=== PATIENT | female | born 1980 | race Caucasian/White ===

== ENCOUNTER 2016-08-27 11:00 | Emergency (ER) | payer OTHER ==
[~2016-08-27] VITALS: Ht 167.6 cm; Wt 86.7 kg
[~2016-08-27 11:00] MED LIST: MULT-506 PO
[2016-08-27 11:14] VITALS: TEMP 37; Ht 167.6 cm; Wt 86.7 kg
[2016-08-27] MEDS ORDERED: SODIUM CHLORIDE 0.9% 1000ML 1,000 ML IV STA (11:31)
[2016-08-27 11:50] LABS: BASO % 0.2 %; BASO ABS # 0.01 K/uL (0-0.2); COMPLETE YES; EOS % 1.3 %; IG% 0.2 %; LYMPH % 35.2 %; LYMPH ABS # 1.88 K/uL (1.2-3.4); MEAN CELL VOLUME 81.8 fL (80-100); MEAN CORPUSCULAR HGB CONC 33.1 g/dl (32-36); MEAN PLATELET VOLUME 9.7 fL (7.4-10.4); MONO % 9.9 %; NEUT % 53.2 %; PLATELET COUNT 280 K/uL (130-400); WHITE BLOOD COUNT 5.34 K/uL (4.8-10.8)
[2016-08-27 12:07] LABS: BUN/CREATININE RATIO 14.3 (10-20); CALCIUM 8.8 mg/dl (8.5-10.1); CREATININE 0.68 mg/dl (0.60-1.20); POTASSIUM 3.7 mmol/L (3.5-5.1)
[2016-08-27 12:10] LABS: ALB/GLOB RATIO 0.8 (0.9-2)
--- NOTE | 2016-08-27 12:13 | DIAGNOSTIC IMAGING REPORT ---
CT SCAN OF THE ABDOMEN AND PELVIS WITHOUT CONTRAST CLINICAL HISTORY: RLQ abdominal pain, radiates to flank. Dark urine. COMPARISON STUDY: No previous studies for comparison. TECHNIQUE: CT scan of the abdomen and pelvis was performed from the lung bases to the proximal femurs. Images are reviewed in the axial, sagittal, and coronal planes. IV contrast was not administered for this examination. CT DOSE: 1004.37 mGy.cm FINDINGS: Lower chest: There are minor basilar atelectatic changes. There is a 2 mm right lower lobe pulmonary nodule as visualized in image #[id number]. This is of doubtful clinical significance. The unenhanced liver is normal in size, contour, and attenuation. There is no intrahepatic biliary ductal dilatation. Liver: Gallbladder: Unremarkable. Spleen: Normal in size and attenuation. Pancreas: Unremarkable. Adrenal glands: Unremarkable. Kidneys: No renal, ureteral, or bladder calculi are visualized. Bowel: There are no transition zones indicate bowel obstruction. There is no acute diverticulitis. The appendix appears normal. Peritoneum: There is no intraperitoneal free air or abdominal ascites. Vasculature: The abdominal aorta is normal in course and caliber. Adenopathy: None. Pelvic viscera: The bladder, and pelvic viscera are unremarkable. Skeletal structures: No destructive osseous lesions are seen. IMPRESSION: 1. No acute intra-abdominal or pelvic findings 2. No evidence of bowel obstruction. No evidence of free air 3. No renal, ureteral, or bladder calculi identified 4. Normal appendix. No evidence of acute diverticulitis. Electronically signed by: Blaine Jimenes M.D. 08/27/2016 12:12 PM Dictated Date/Time: 08/27/2016 12:07 PM
[2016-08-27 13:30] LABS: URINE APPEARANCE CLEAR (CLEAR); URINE BILIRUBIN NEG (NEG); URINE COLOR YELLOW; URINE NITRITE NEG (NEG); URINE SPECIFIC GRAVITY 1.009 (1.000-1.030); UROBILINOGEN NEG (NEG); ZZUR CULT IF INDIC CLEAN CATCH NO
[2016-08-27 13:31] LABS: MANUAL MICROSCOPIC REQUIRED? NO; REVIEW REQ? NO
--- NOTE | 2016-08-27 15:16 | DIAGNOSTIC IMAGING REPORT ---
TRANSVAG-FEMALE PELVIS CLINICAL HISTORY: Right lower quadrant abdominal pain. COMPARISON STUDY: Pelvic ultrasound March 20, [address] of the abdomen and pelvis August 27, 2016. FINDINGS: The uterus measures 9.8 x 4.7 x 6.3 cm. The endometrium measures 1.1 cm in thickness. The right ovary measures 3.3 x 1.9 x 2.5 cm and the left ovary measures 3.2 x 2.4 x 3.1 cm and contains a dominant follicle. Color flow is identified within each ovary. There was no free fluid. IMPRESSION: Unremarkable pelvic ultrasound. Electronically signed by: Richard García M.D. 08/27/2016 3:15 PM Dictated Date/Time: 08/27/2016 3:14 PM
[2016-08-27 15:36] VITALS: BP 121/78; PULSE 75; O2SAT 100
--- NOTE | 2016-08-27 15:46 | EMERGENCY ROOM VISIT NOTE ---
History First contact with patient: 11:19 Chief Complaint: ABDOMINAL PAIN Stated Complaint: STOMACH PAIN Nursing Triage Summary: pt reports right abd pain described as sharp. started 2 days ago denies any n/v/d/ History of Present Illness The patient is a 36 year old female who presents to the Emergency Room via private vehicle with complaints of "stomach pain". The patient states that 3 days ago she began with sharp pain in the right lower quadrant. She states that she is taking pain medication and the pain is felt better. She states that the pain is back again, and is stabbing and sharp in nature. She notes that at times it will be achy. The patient is transient in nature. She rates the pain at rest is a 4/10, and when it worsens it as a 9/10. She states the pain is worse with sitting, better with walking. She denies any kidney stone history. She still has her appendix. She did have a surgery performed of the uterus in the past. In regard to the urine, she states it feels darker now and believe she is passing white tissue-like substances. She denies chance of . She rates her current pain as a 3-4/10. She is taking ibuprofen with relief. She last ate yesterday around 10 PM. There is associated feeling feverish. She denies any chest pain, cough, shortness of breath, nausea, vomiting, urinary symptoms. She denies any vaginal discharge. Review of Systems A complete 10-point Review of Systems was discussed with the patient, with pertinent positives and negatives listed in the History of Present Illness. All remaining Review of Systems questions can be considered negative unless otherwise specified. Past Medical/Surgical History Medical Problems: (1) Anemia Family History Patient reports no known family medical history. Unremarkable Social History Smoking Status: Never Smoker Alcohol Use: none Housing Status: lives with family Occupation Status: unemployed Current/Historical Medications Scheduled Multivitamin (Multivitamin), 1 TAB PO QAM Allergies Coded Allergies: No Known Allergies (Verified , 08/27/16) Physical Exam Vital Signs Date Time Temp Pulse Resp B/P Pulse Ox O2 Delivery O2 Flow Rate FiO2 08/27/16 15:36 75 14 121/78 100 Room Air 08/27/16 14:12 62 16 140/96 08/27/16 12:38 77 16 142/64 98 08/27/16 11:14 37.0 80 18 124/78 98 Room Air Physical Exam VITAL SIGNS - Vital signs and nursing notes were reviewed. The patient is afebrile, normotensive, non-tachycardic and is saturating well on room air 98%. GENERAL -36-year-old female appearing her stated age who is in no acute distress. Communicates well with provider and answers questions appropriately. SKIN - Without rashes. No petechial rashes. HEAD - NC/AT. NECK - Neck with FROM. No signs of meningitis. LUNGS - Chest wall symmetric without accessory muscle use, intercostals retractions, or central cyanosis. Normal vesicular breath sounds CTA B/L. No wheezes, rales, or rhonchi appreciated. CARDIAC - RRR with S1/S2. No murmur, rubs, or gallops appreciated. ABDOMEN - Abdominal contour without pulsations or visible masses. BS normoactive all four quadrants. There is tenderness to palpation overlying the right mid abdomen. No right lower quadrant or rebound tenderness. No palpable masses, hepatosplenomegaly, or ascites noted. EXTREMITIES - No clubbing or peripheral cyanosis. No pretibial edema present. + 5/5 strength noted in UE/LE bilaterally. Medical Decision & Procedures ER Provider Diagnostic Interpretation: CT SCAN OF THE ABDOMEN AND PELVIS WITHOUT CONTRAST CLINICAL HISTORY: RLQ abdominal pain, radiates to flank. Dark urine. COMPARISON STUDY: No previous studies for comparison. TECHNIQUE: CT scan of the abdomen and pelvis was performed from the lung bases to the proximal femurs. Images are reviewed in the axial, sagittal, and coronal planes. IV contrast was not administered for this examination. CT DOSE: 1004.37 mGy.cm FINDINGS: Lower chest: There are minor basilar atelectatic changes. There is a 2 mm right lower lobe pulmonary nodule as visualized in image #[id number]. This is of doubtful clinical significance. The unenhanced liver is normal in size, contour, and attenuation. There is no intrahepatic biliary ductal dilatation. Liver: Gallbladder: Unremarkable. Spleen: Normal in size and attenuation. Pancreas: Unremarkable. Adrenal glands: Unremarkable. Kidneys: No renal, ureteral, or bladder calculi are visualized. Bowel: There are no transition zones indicate bowel obstruction. There is no acute diverticulitis. The appendix appears normal. Peritoneum: There is no intraperitoneal free air or abdominal ascites. Vasculature: The abdominal aorta is normal in course and caliber. Adenopathy: None. Pelvic viscera: The bladder, and pelvic viscera are unremarkable. Skeletal structures: No destructive osseous lesions are seen. IMPRESSION: 1. No acute intra-abdominal or pelvic findings 2. No evidence of bowel obstruction. No evidence of free air 3. No renal, ureteral, or bladder calculi identified 4. Normal appendix. No evidence of acute diverticulitis. Electronically signed by: Blaine Jimenes M.D. 08/27/2016 12:12 PM Dictated Date/Time: 08/27/2016 12:07 PM TRANSVAG-FEMALE PELVIS CLINICAL HISTORY: Right lower quadrant abdominal pain. COMPARISON STUDY: Pelvic ultrasound March 20, [address] of the abdomen and pelvis August 27, 2016. FINDINGS: The uterus measures 9.8 x 4.7 x 6.3 cm. The endometrium measures 1.1 cm in thickness. The right ovary measures 3.3 x 1.9 x 2.5 cm and the left ovary measures 3.2 x 2.4 x 3.1 cm and contains a dominant follicle. Color flow is identified within each ovary. There was no free fluid. IMPRESSION: Unremarkable pelvic ultrasound. Electronically signed by: Richard García M.D. 08/27/2016 3:15 PM Dictated Date/Time: 08/27/2016 3:14 PM Laboratory Results 08/27/16 11:35 Red Blood Count 4.40, Mean Corpuscular Volume 81.8, Mean Corpuscular Hemoglobin 27.0, Mean Corpuscular Hemoglobin Concent 33.1, Mean Platelet Volume 9.7, Neutrophils (%) (Auto) 53.2, Lymphocytes (%) (Auto) 35.2, Monocytes (%) (Auto) 9.9, Eosinophils (%) (Auto) 1.3, Basophils (%) (Auto) 0.2, Neutrophils # (Auto) 2.84, Lymphocytes # (Auto) 1.88, Monocytes # (Auto) 0.53, Eosinophils # (Auto) 0.07, Basophils # (Auto) 0.01 08/27/16 11:35 Test 08/27/16 11:31 08/27/16 11:35 08/27/16 11:45 Bedside Urine Test NEG (NEG) White Blood Count 5.34 K/uL (4.8-10.8) Red Blood Count 4.40 M/uL (4.2-5.4) Hemoglobin 11.9 g/dL (12.0-16.0) Hematocrit 36.0 % (37-47) Mean Corpuscular Volume 81.8 fL (80-100) Mean Corpuscular Hemoglobin 27.0 pg (25-34) Mean Corpuscular Hemoglobin Concent 33.1 g/dl (32-36) Platelet Count 280 K/uL (130-400) Mean Platelet Volume 9.7 fL (7.4-10.4) Neutrophils (%) (Auto) 53.2 % Lymphocytes (%) (Auto) 35.2 % Monocytes (%) (Auto) 9.9 % Eosinophils (%) (Auto) 1.3 % Basophils (%) (Auto) 0.2 % Neutrophils # (Auto) 2.84 K/uL (1.4-6.5) Lymphocytes # (Auto) 1.88 K/uL (1.2-3.4) Monocytes # (Auto) 0.53 K/uL (0.11-0.59) Eosinophils # (Auto) 0.07 K/uL (0-0.5) Basophils # (Auto) 0.01 K/uL (0-0.2) RDW Standard Deviation 44.0 fL (36.4-46.3) RDW Coefficient of Variation 14.7 % (11.5-14.5) Immature Granulocyte % (Auto) 0.2 % Immature Granulocyte # (Auto) 0.01 K/uL (0.00-0.02) Anion Gap 8.0 mmol/L (3-11) Est Creatinine Clear Calc Drug Dose 124.4 ml/min Estimated GFR () 128.6 Estimated GFR (Non- 111.0 BUN/Creatinine Ratio 14.3 (10-20) Calcium Level 8.8 mg/dl (8.5-10.1) Total Bilirubin 0.4 mg/dl (0.2-1) Aspartate Amino Transf (AST/SGOT) 15 U/L (15-37) Alanine Aminotransferase (ALT/SGPT) 21 U/L (12-78) Alkaline Phosphatase 69 U/L (45-117) Total Protein 7.9 gm/dl (6.4-8.2) Albumin 3.5 gm/dl (3.4-5.0) Globulin 4.4 gm/dl (2.5-4.0) Albumin/Globulin Ratio 0.8 (0.9-2) Urine Color YELLOW Urine Appearance CLEAR (CLEAR) Urine pH 7.0 (4.5-7.5) Urine Specific [place] 1.009 (1.000-1.030) Urine Protein NEG (NEG) Urine Glucose (UA) NEG (NEG) Urine Ketones NEG (NEG) Urine Occult Blood NEG (NEG) Urine Nitrite NEG (NEG) Urine Bilirubin NEG (NEG) Urine Urobilinogen NEG (NEG) Urine Leukocyte Esterase NEG (NEG) Medications Administered Medications (Trade) Dose Ordered Sig/Ritu Route Start Time Stop Time Status Last Admin Dose Admin Sodium Chloride (Nss 1000ml) 1,000 ml @ 999 mls/hr Q1H1M STAT IV 08/27/16 11:31 08/27/16 12:31 DC 08/27/16 11:43 999 MLS/HR Medical Decision Patient was seen and evaluated as above. The patient presents with abdominal pain on the right lower quadrant with dark urine. These symptoms do appear to be consistent with renal calculi, potential appendicitis or ovarian torsion. Multiple etiologies were entertained. IV access is initiated and a CBC, CMP, UA clean catch culture if indicated, CT of the abdomen and pelvis without contrast for stone as well as urine . She was hydrated with 1 L of normal saline. She appears clinically well. CBC reveals no leukocytosis. Slight anemia noted. CMP essentially unremarkable other than elevated globulin of 4.4. Urinalysis negative. Urine negative. CT of the abdomen and pelvis negative for stone. Small nodule identified and discussed with patient. I did offer the patient a pelvic exam to rule out gynecological abnormality however she deferred at this time, and notes that she would like us to perform by her dumper. We were in agreement that an ultrasound to be performed to evaluate for ovarian torsion. Results as above. No torsion. The patient did not want any for pain. She seemed happy with the results and was stable for discharge. I again offered for pelvic exam however she declined. At this time I'm not able to identify any emergent etiology however cannot completely eliminate gynecological causes. She is to follow-up with her family doctor as well as her dumper for further evaluation and management. She was discharged home in good condition after educated her upon worrisome symptoms which to return, answering her questions and ensuring she was comfortable. In the evaluation and treatment of this patient the following differential diagnoses were entertained: Renal calculi, pyelonephritis, ovarian torsion, PID , gynecological abnormality, bowel obstruction, appendicitis, epiploic appendicitis, among others. Impression Primary Impression: Abdominal pain Departure Information Dispostion Home / Self-Care Condition GOOD Referrals Patel Carrasco D.O. (PCP) Patient Instructions My [facility] Additional Instructions You have been treated in the Emergency Department your Abdominal Pain. Laboratory results and imaging studies have ruled out any emergent causes for your abdominal pain which would warrant admission or surgery. The CT scan does show a 2 mm nodule in the right lung. Please follow-up with your family doctor regarding this. As we discussed, you have respectfully declined a pelvic exam here in the emergency department. For this reason, etiologies involving this region cannot be 100% excluded. Please call your dumper to schedule follow-up for evaluation. Please call your family doctor to schedule follow-up as soon as possible. As we discussed, please return here for any worsening of your symptoms. For pain control, you can use the following [id number] medicines (if >12 yo): - Regular strength (325mg/tab) Tylenol (acetaminophen) 2 tabs every 4-6 hours as needed. Do not exceed 12 tablets in a 24 hour period. Avoid taking more than 3 grams (3000 mg) of Tylenol per day. This includes any other sources of acetaminophen you may take on a regular basis. - Regular strength (200 mg/tab) Advil (ibuprofen) 1-2 tabs every 4-6 hours as needed. Do not exceed a dose of 3200 mg per day. Drink plenty of water and stay well hydrated. As with any trip to the Emergency Department, you should follow-up with your Primary Care Provider from today's visit. Return to the emergency department if your symptoms persist despite treatment plan outlined above or if the following symptoms occur: increased fevers, chills , worsening nausea/vomiting, blood in your stool or urine. Please return to the emergency department with any new/concerning symptoms. Problem Qualifiers Primary Impression: Abdominal pain Abdominal location: right lower quadrant Qualified Codes: R10.31 - Right lower quadrant pain
== END 2016-08-27 15:58 | disposition home or self-care (01) ==
LOC: C.EDB 11:01 → C.EDA 15:58
DX: R10.31 Right lower quadrant pain (principal); D64.9 Anemia, unspecified

== ENCOUNTER 2017-03-17 13:59 | Emergency (ER) | payer OTHER ==
[~2017-03-17] VITALS: Ht 167.6 cm; Wt 87.2 kg
[2017-03-17 14:08] VITALS: TEMP 37.3; Ht 167.6 cm; Wt 87.2 kg
[2017-03-17 15:24] VITALS: O2SAT 99
--- NOTE | 2017-03-17 15:27 | DIAGNOSTIC IMAGING REPORT ---
CHEST ONE VIEW PORTABLE CLINICAL HISTORY: Chest pain. COMPARISON STUDY: Chest radiograph September 04, 2015. FINDINGS: Lung volumes are normal. Lungs are clear. No pneumothorax or pleural effusion is present. Pulmonary vascularity is normal. Cardiomediastinal silhouette is normal. IMPRESSION: No acute cardiopulmonary findings. Electronically signed by: Richard García M.D. 03/17/2017 3:26 PM Dictated Date/Time: 03/17/2017 3:25 PM
[2017-03-17] MEDS ORDERED: OPTIRAY 320 IV PRN (15:30)
[2017-03-17 15:43] LABS: BASO % 0.4 %; BASO ABS # 0.03 K/uL (0-0.2); COMPLETE YES; HEMATOCRIT 43.8 % (37-47); IG% 0.1 %; LYMPH % 35.1 %; LYMPH ABS # 2.54 K/uL (1.2-3.4); MEAN CELL VOLUME 89.4 fL (80-100); MEAN CORPUSCULAR HGB CONC 33.6 g/dl (32-36); MEAN PLATELET VOLUME 9.3 fL (7.4-10.4); MONO % 7.7 %; NEUT % 55.7 %; PLATELET COUNT 277 K/uL (130-400); WHITE BLOOD COUNT 7.23 K/uL (4.8-10.8)
[2017-03-17 15:44] LABS: URINE APPEARANCE CLEAR (CLEAR); URINE BILIRUBIN NEG (NEG); URINE COLOR YELLOW; URINE NITRITE NEG (NEG); URINE SPECIFIC GRAVITY 1.019 (1.000-1.030); UROBILINOGEN NEG (NEG)
[2017-03-17 15:46] LABS: PREG INTERNAL NEGATIVE QC NEG CLEAR BACKGROUND; PREG INTERNAL POSITIVE QC POS CONTROL LINE
[2017-03-17 15:48] LABS: MANUAL MICROSCOPIC REQUIRED? NO; REVIEW REQ? NO
[2017-03-17 16:10] LABS: BLOOD UREA NITROGEN 7 mg/dl (7-18); BUN/CREATININE RATIO 9.7 (10-20); CALCIUM 8.6 mg/dl (8.5-10.1); CARBON DIOXIDE 26 mmol/L (21-32); CHLORIDE 105 mmol/L (98-107); CREATININE 0.67 mg/dl (0.60-1.20); GLUCOSE 98 mg/dl (70-99); POTASSIUM 3.6 mmol/L (3.5-5.1); SODIUM 137 mmol/L (136-145)
[2017-03-17 16:15] LABS: ALKALINE PHOSPHATASE 69 U/L (45-117); ALT/SGPT 18 U/L (12-78); AST/SGOT 14 U/L (15-37); CKMB/CK RATIO 1.1 (0-3.0)
--- NOTE | 2017-03-17 16:46 | DIAGNOSTIC IMAGING REPORT ---
(CHEST FOR PE) ANGIO WITH CT DOSE: 486.31 mGy.cm HISTORY: 36 years-old Female presents with acute left-sided chest pain with syncope. TECHNIQUE: Multiple CTA images of the chest were obtained after the intravenous administration of 116 mL Optiray 320. Coronal and sagittal MIPS were obtained from the axial data set and were submitted for review. A dose lowering technique was utilized adhering to the principles of ALARA. COMPARISON: CTA of the chest 05/04/2014. FINDINGS: CTA: The distal subsegmental branches are not well-seen secondary to respiratory motion and contrast bolus timing. No pulmonary bolus identified.. Thoracic aorta is normal in course and caliber without aneurysm or dissection. Heart size is normal. CT CHEST: No dominant thyroid nodule is seen. No pathologically adenopathy by CT size criteria. There is no pneumothorax, pleural effusion or focal airspace consolidation. There is mild dependent bibasilar atelectasis. 2 mm nodular density of the lateral basal segment left lower lobe seen on image 97 of series 4 is likely benign. No suspicious pulmonary nodules identified. Central airways are patent. The imaged upper abdominal structures are normal. The osseous structures appear intact. IMPRESSION: No acute intrathoracic abnormality identified, specifically no acute aortic pathology or evidence of pulmonary thromboembolic disease. The above report was generated using voice recognition software. It may contain grammatical, syntax or spelling errors. Electronically signed by: Mayo Chavarria M.D. 03/17/2017 4:44 PM Dictated Date/Time: 03/17/2017 4:38 PM
[2017-03-17 18:47] VITALS: BP 105/72; PULSE 74; O2SAT 98
--- NOTE | 2017-03-17 23:39 | EMERGENCY ROOM VISIT NOTE ---
History Report prepared by Marge: Dennis Grigsby Under the Supervision of: Dr. Bryce Lake M.D. First contact with patient: 15:11 Chief Complaint: CARDIAC ASSESSMENT Stated Complaint: PASSED OUT YESTERDAY, CHEST PAIN Nursing Triage Summary: triage note: Patient presents ambulatory to triage with c/o "I passed out yesterday" States today she feels dizzy and has left sided chest pain (which has reportedly lasted "a long time, a couple of months") States BP was low yesterday She reports same symptoms yesteday She denies additional complaints History of Present Illness The patient is a 36 year old female who presents to the Emergency Room with complaints of constant chest pain that started today. She rates her discomfort as a 4/10 in severity. The patient states that she started to experience dizziness, diaphoresis, and tachycardia. She reports that she felt her vision go dark and she experienced a syncopal of episode for a couple of seconds. The patient states that she is currently experiencing left sided chest pain and dizziness. She reports that her chest pain has been there for a couple of months but admits that her chest pain worsened today. The patient also reports that her chest pain is typically in the middle of her chest. She states that she has been coughing frequently, which is worsened with laying on her stomach and in the evening time. The patient also reports that she has been experiencing a cold sensation in her hands and her fingers have been blue. She admits that she has experienced a syncopal 5 or 6 months ago and had a catscan done which showed a lung nodule. The patient denies that she had pain with her last syncopal episode. She reports that her PCP is Dr. Montalvo, who knows about her symptoms. The patient states that she tried to call her PCP today, but reports that he was busy. She admits to a history of uterine polyps that were removed twice. She denies a history of acid reflux. The patient denies recent long travel, swelling in her legs, LOC, headache, fevers, chills, diaphoresis, visual changes, neck pain, chest pain, breathing difficulties, nausea, vomiting, abdominal pain, back pain, melena, hematochezia, urinary symptoms, numbness, weakness, lymphadenopathy, rash, or other complaints. Source of History: patient Onset: today Position: chest Symptom Intensity: 4/10 Timing: constant Associated Symptoms: + LOC, + diaphoresis, + cough Review of Systems See HPI for pertinent positives and negatives. A total of ten systems were reviewed and were otherwise negative. Past Medical & Surgical Medical Problems: (1) Anemia Family History Patient reports no known family medical history. Social History Smoking Status: Never Smoker Alcohol Use: none Housing Status: lives with family Occupation Status: unemployed Current/Historical Medications No Active Prescriptions or Reported Meds Allergies Coded Allergies: No Known Allergies (Verified , 08/27/16) Physical Exam Vital Signs Date Time Temp Pulse Resp B/P (MAP) Pulse Ox O2 Delivery O2 Flow Rate FiO2 03/17/17 19:16 03/17/17 18:47 74 20 105/72 98 Room Air 03/17/17 17:21 67 20 112/69 98 Room Air 03/17/17 15:29 72 03/17/17 15:24 72 16 113/65 99 Room Air 03/17/17 15:24 99 Room Air 03/17/17 14:59 96 Room Air 03/17/17 14:08 37.3 78 16 120/80 98 Room Air Physical Exam GENERAL: Awake, alert, well-appearing, in no distress HENT: Normocephalic, atraumatic. Oropharynx unremarkable. EYES: Normal conjunctiva. Sclera non-icteric. NECK: Supple. No nuchal rigidity. FROM. No JVD. RESPIRATORY: Clear to auscultation. CARDIAC: Regular rate, normal rhythm. Extremities warm and well perfused. Pulses equal. ABDOMEN: Soft, non-distended. No tenderness to palpation. No rebound or guarding. No masses. RECTAL: Deferred. MUSCULOSKELETAL: Chest examination reveals no tenderness. The back is symmetrical on inspection without obvious abnormality. There is no CVA tenderness to palpation. No joint edema. LOWER EXTREMITIES: Calves are equal size bilaterally and non-tender. No edema. No discoloration. NEURO: Normal sensorium. No sensory or motor deficits noted. SKIN: No rash or jaundice noted. Medical Decision & Procedures ER Provider Diagnostic Interpretation: Radiology results as stated below per my review and radiologist interpretation: CHEST ONE VIEW PORTABLE CLINICAL HISTORY: Chest pain. COMPARISON STUDY: Chest radiograph September 04, 2015. FINDINGS: Lung volumes are normal. Lungs are clear. No pneumothorax or pleural effusion is present. Pulmonary vascularity is normal. Cardiomediastinal silhouette is normal. IMPRESSION: No acute cardiopulmonary findings. Electronically signed by: Richard García M.D. 03/17/2017 3:26 PM Dictated Date/Time: 03/17/2017 3:25 PM (CHEST FOR PE) ANGIO WITH CT DOSE: 486.31 mGy.cm HISTORY: 36 years-old Female presents with acute left-sided chest pain with syncope. TECHNIQUE: Multiple CTA images of the chest were obtained after the intravenous administration of 116 mL Optiray 320. Coronal and sagittal MIPS were obtained from the axial data set and were submitted for review. A dose lowering technique was utilized adhering to the principles of ALARA. COMPARISON: CTA of the chest 05/04/2014. FINDINGS: CTA: The distal subsegmental branches are not well-seen secondary to respiratory motion and contrast bolus timing. No pulmonary bolus identified.. Thoracic aorta is normal in course and caliber without aneurysm or dissection. Heart size is normal. CT CHEST: No dominant thyroid nodule is seen. No pathologically adenopathy by CT size criteria. There is no pneumothorax, pleural effusion or focal airspace consolidation. There is mild dependent bibasilar atelectasis. 2 mm nodular density of the lateral basal segment left lower lobe seen on image 97 of series 4 is likely benign. No suspicious pulmonary nodules identified. Central airways are patent. The imaged upper abdominal structures are normal. The osseous structures appear intact. IMPRESSION: No acute intrathoracic abnormality identified, specifically no acute aortic pathology or evidence of pulmonary thromboembolic disease. The above report was generated using voice recognition software. It may contain grammatical, syntax or spelling errors. Electronically signed by: Mayo Chavarria M.D. 03/17/2017 4:44 PM Dictated Date/Time: 03/17/2017 4:38 PM Laboratory Results 03/17/17 15:25 Red Blood Count 4.90, Mean Corpuscular Volume 89.4, Mean Corpuscular Hemoglobin 30.0, Mean Corpuscular Hemoglobin Concent 33.6, Mean Platelet Volume 9.3, Neutrophils (%) (Auto) 55.7, Lymphocytes (%) (Auto) 35.1, Monocytes (%) (Auto) 7.7, Eosinophils (%) (Auto) 1.0, Basophils (%) (Auto) 0.4, Neutrophils # (Auto) 4.02, Lymphocytes # (Auto) 2.54, Monocytes # (Auto) 0.56, Eosinophils # (Auto) 0.07, Basophils # (Auto) 0.03 03/17/17 15:25 Test 03/17/17 15:15 03/17/17 15:25 Urine Color YELLOW Urine Appearance CLEAR (CLEAR) Urine pH 6.0 (4.5-7.5) Urine Specific [place]rose 1.019 (1.000-1.030) Urine Protein NEG (NEG) Urine Glucose (UA) NEG (NEG) Urine Ketones NEG (NEG) Urine Occult Blood NEG (NEG) Urine Nitrite NEG (NEG) Urine Bilirubin NEG (NEG) Urine Urobilinogen NEG (NEG) Urine Leukocyte Esterase NEG (NEG) White Blood Count 7.23 K/uL (4.8-10.8) Red Blood Count 4.90 M/uL (4.2-5.4) Hemoglobin 14.7 g/dL (12.0-16.0) Hematocrit 43.8 % (37-47) Mean Corpuscular Volume 89.4 fL (80-100) Mean Corpuscular Hemoglobin 30.0 pg (25-34) Mean Corpuscular Hemoglobin Concent 33.6 g/dl (32-36) Platelet Count 277 K/uL (130-400) Mean Platelet Volume 9.3 fL (7.4-10.4) Neutrophils (%) (Auto) 55.7 % Lymphocytes (%) (Auto) 35.1 % Monocytes (%) (Auto) 7.7 % Eosinophils (%) (Auto) 1.0 % Basophils (%) (Auto) 0.4 % Neutrophils # (Auto) 4.02 K/uL (1.4-6.5) Lymphocytes # (Auto) 2.54 K/uL (1.2-3.4) Monocytes # (Auto) 0.56 K/uL (0.11-0.59) Eosinophils # (Auto) 0.07 K/uL (0-0.5) Basophils # (Auto) 0.03 K/uL (0-0.2) RDW Standard Deviation 45.9 fL (36.4-46.3) RDW Coefficient of Variation 14.0 % (11.5-14.5) Immature Granulocyte % (Auto) 0.1 % Immature Granulocyte # (Auto) 0.01 K/uL (0.00-0.02) D-Dimer 300 ug/L FEU (0-500) Anion Gap 6.0 mmol/L (3-11) Est Creatinine Clear Calc Drug Dose 126.6 ml/min Estimated GFR () 129.2 Estimated GFR (Non- 111.5 BUN/Creatinine Ratio 9.7 (10-20) Calcium Level 8.6 mg/dl (8.5-10.1) Total Bilirubin 0.4 mg/dl (0.2-1) Direct Bilirubin < 0.1 mg/dl (0-0.2) Aspartate Amino Transf (AST/SGOT) 14 U/L (15-37) Alanine Aminotransferase (ALT/SGPT) 18 U/L (12-78) Alkaline Phosphatase 69 U/L (45-117) Total Creatine Kinase 103 U/L (26-192) Creatine Kinase MB 1.1 ng/ml (0.5-3.6) Creatine Kinase MB Ratio 1.1 (0-3.0) Troponin I < 0.015 ng/ml (0-0.045) Total Protein 8.3 gm/dl (6.4-8.2) Albumin 3.7 gm/dl (3.4-5.0) Lipase 97 U/L (73-393) Human Chorionic Gonadotropin, Qual NEG (NEG) Laboratory results reviewed by me ECG Indication: chest pain Rate (beats per minute): 72 Rhythm: normal sinus Findings: nonspecific-ST abn, no acute ischemic change, no ectopy ED Course 1520: The patient was evaluated in room B09. A complete history and physical exam was performed. 185: I discussed the patient's case with Dr. Chavarria, [facility] Radiology. He reports that nothing changed and there was no concerning appearance to anything on her skin. 185: I reevaluated the patient. Discussed results and discharge instructions: She verbalized understanding and agreement. The patient is ready for discharge. Medical Decision Triage Nursing notes reviewed. The patient's presentation and history were concerning for chest pain and syncope. Etiologies such as vasovagal event, pleurisy, costochondritis, cardiac ischemia , aortic dissection, pulmonary embolism, pneumonia, pneumothorax, musculoskeletal, infections, gastrointestinal, as well as others were entertained. The patient was evaluated. Clinically she looked well. Her ECG was nonischemic. Her CBC, chemistry panel, LFTs, and lipase were unremarkable. Cardiac markers negative. The patient has had constant pain and therefore only a single set of markers were performed. The patient underwent CT imaging and chest x-ray. These were unremarkable. She has scattered pulmonary nodule noted on prior CT and the CT. None of which were meeting criteria for short- term evaluation. I did speak to radiology about this. Radiology thought it would not be unreasonable to repeat imaging in 12 months. The patient was referred to her primary physician for this. She notes having a lot of cough over a month ago and that the pain seemed to be worse with coughing or taking a deep breath. This sounds consistent with more of a pleurisy or mild costochondritis. She has had episodes in the past with passing out as well. The patient had a prodrome prior to this. This may be vasovagal however she has noted some palpitations. She had no dysrhythmias or abnormalities noted on monitoring here during her time in the emergency department. The patient will follow-up closely with her primary physician I discussed having her primary physician evaluate her for cardiac monitoring and also intentionally referring to cardiology. Patient and were comfortable with the plan. If she worsens she will be back. I gave my usual and customary discussion regarding this issue. By the evaluation outlined above other emergent etiologies such as those listed in the differential, as well as others, were deemed relatively unlikely. The patient was educated about the findings as listed above. All questions were answered and the patient was pleased with the treatment. Return instructions were outlined and the patient was discharged in stable condition. The patient was referred to her pcp for follow-up for a recheck of the current condition. Medication Reconcilliation Current Medication List: was personally reviewed by me Blood Pressure Screening Patient's blood pressure: Normal blood pressure Consults Time Called: 1854 Consulting Physician: Dr. Chavarria, [facility] Radiology Returned Call: 1854 I discussed the patient's case with Dr. Chavarria, [facility] Radiology. He reports that nothing changed and there was no concerning appearance to anything on her skin. Impression Primary Impression: Left sided chest pain Additional Impression: Syncope Scribe Attestation The scribe's documentation has been prepared under my direction and personally reviewed by me in its entirety. I confirm that the note above accurately reflects all work, treatment, procedures, and medical decision making performed by me. Departure Information Dispostion Home / Self-Care Prescriptions No Active Prescriptions or Reported Meds Referrals No Doctor, Assigned (PCP) Forms IMPORTANT VISIT INFORMATION Patient Instructions My [facility] Additional Instructions CHEST PAIN INSTRUCTIONS: Ibuprofen(Motrin, Advil) may be used for fever or pain. Use 600mg every six hours as needed. Take with food. Avoid using more than 2400mg in a 24 hour period. Do not use 2400mg per day for more than three consecutive days without physician direction. Prolonged inappropriate use can lead to stomach upset or ulcers. (AND/OR) Acetaminophen(Tylenol) may be used for fever or pain. Use 1000mg every six hours as needed. Avoid using more than 4000mg in a 24 hour period. Rest and drink plenty of fluids as tolerated. Continue current medications. Avoid strenuous activities and anything that worsens your pain. Resume normal activities once your symptoms resolve. Return to the ER immediately for worsening palpitations, passing out, worsening or persistent chest pain, abdominal pain, vomiting, fevers, chest pains, difficulty breathing, worsening of your condition, or as needed. Follow up with your primary physician in 2-3 days for a recheck of your current condition. Discuss referral to cardiology and outpatient monitoring regarding the palpitations. Also a repeat CT scan of the chest can be done in 12 months to ensure no changes occur in the nodule seen. Problem Qualifiers
== END 2017-03-17 19:16 | disposition home or self-care (01) ==
LOC: C.EDB 14:00
DX: R07.9 Chest pain, unspecified (principal); R55 Syncope and collapse; R42 Dizziness and giddiness

== ENCOUNTER → 2017-07-17 | Outpatient (CLI) | payer OTHER | END | disposition home or self-care (01) | LOC: C.PAPS 10:16 | PROVIDERS: ATTEND Obstetrics & Gynecology | DX: Z12.4 Encounter for screening for malignant neoplasm of cervix (principal) ==